=== PATIENT | male | born 1985 | race Caucasian/White ===

== ENCOUNTER 2018-07-03 15:39 | Emergency (ER) | payer OTHER ==
[2018-07-03 16:18] VITALS: BP 140/72; PULSE 96; TEMP 101.6; BMI 25.4
[2018-07-03] MEDS ORDERED: IBUPROFEN 600 MG TABLET (FP) PO ONE ×2 (16:19→16:21)
--- NOTE | 2018-07-03 16:19 | PDOC ---
Rapid Medical Evaluation Time Seen by Provider: 07/03/18 16:13 Medical Evaluation: 07/03/18 16:13 I have performed a brief in-person evaluation of this patient The patient present with a chief complaint of: chest pain, shortness of breath, and upper back pain x 2 days Pertinent physical exam findings: NAD clear lungs bilaterally non tender abdomen I have ordered the following: antipyretic The patient will proceed to the ED for further evaluation. Discharge Disposition - Diagnosis Shortness of breath - Referrals - Patient Instructions - Post Discharge Activity
[2018-07-03 17:57] LABS: BASO % 0.3 % (0-2.0); EOS % 0.8 % (0-4.5); LYMPH % 11.2 % (8-40); MCH 32.4 pg (25.7-33.7); MCHC 34.2 g/dl (32.0-35.9); MEAN CELL VOLUME 94.7 fl (80-96); MEAN PLT VOLUME 9.6 fl (7.5-11.1); NEUT % 79.7 % (42.8-82.8); PLATELET COUNT 192 K/MM3 (134-434); RBC 4.64 M/mm3 (4.00-5.60); RDW 13.1 % (11.9-15.9); WHITE BLOOD COUNT 5.9 K/mm3 (4.0-10.0)
--- NOTE | 2018-07-03 17:57 | PDOC ---
History of Present Illness - General Chief Complaint: Respiratory Stated Complaint: CONGESTED/ CHEST DISCOMFORT Time Seen by Provider: 07/03/18 16:13 History Source: Patient Exam Limitations: Clinical Condition - History of Present Illness Initial Comments: 07/03/18 17:52 Patient with no significant past medical history present with complaint of chest tightness, nasal congestion, body aches, fever, chills, abdominal pain and episode of right nosebleed and blood thinks stool today. Patient reports symptoms started yesterday. Denies numbness or tingling sensation, nausea or vomiting. Denies dizziness. Denies any other symptoms. Timing/Duration: 24 hours Past History - Past Medical History Allergies/Adverse Reactions: Allergies Allergy/AdvReac Type Severity Reaction Status Date / Time No Known Allergies Allergy Verified 07/03/18 16:18 Home Medications: Ambulatory Orders Benzonatate [Tessalon Pearls -] 100 mg PO TID PRN #21 capsule 07/03/18 Methylprednisolone [Medrol Dose Willie] 4 mg PO ASDIR #21 tablet 07/03/18 Oseltamivir Phosphate [Tamiflu -] 75 mg PO BID #10 capsule 07/03/18 Oxymetazoline 0.05% Nasal Soln [Afrin -] 2 spray NS BID PRN 3 Days #1 spraybtl 07/03/18 - Suicide/Smoking/Psychosocial Hx Smoking History: Never smoked Have you smoked in the past 12 months: No Information on smoking cessation initiated: No Hx Alcohol Use: No Drug/Substance Use Hx: No Review of Systems - Review of Systems Able to Perform ROS?: Yes Is the patient limited Danish proficient: No Constitutional: Yes: Chills, Fever, Malaise HEENTM: Yes: Symptoms Reported, See HPI, Nose Congestion. No: Eye Pain, Blurred Vision, Tearing, Recent change in vision, Double Vision, Cataracts, Ear Pain, Ocular Prothesis, Ear Discharge, Nose Pain, Tinnitus, Nose Bleeding, Hearing Loss, Throat Pain, Throat Swelling, Mouth Pain, Dental Problems, Difficulty Swallowing, Mouth Swelling, Other Respiratory: Yes: Symptoms reported, See HPI, Cough. No: Orthopnea, Shortness of Breath, SOB with Exertion, SOB at Rest, Stridor, Wheezing, Productive cough, Hemoptysis, Other Cardiac (ROS): Yes: Symptoms Reported, See HPI, Chest Tightness. No: Chest Pain , Edema, Irregular Heart Rate, Lightheadedness, Palpitations, Syncope, Other ABD/GI: Yes: Abdominal cramping (epigastric). No: Nausea, Vomiting : No: Burning, Dysuria, Discharge, Frequency, Flank Pain, Urgency Musculoskeletal: Yes: See HPI, Muscle Pain (whole body pain) All Other Systems: Reviewed and Negative *Physical Exam - Vital Signs Last Vital Signs Temp Pulse Resp BP Pulse Ox 101.6 F H 96 H 20 140/72 98 07/03/18 16:14 07/03/18 16:14 07/03/18 16:14 07/03/18 16:14 07/03/18 16:14 - Physical Exam Comments: 07/03/18 17:55 GENERAL: Well developed, well nourished. Awake and alert. No acute distress. HEENT: Normocephalic, atraumatic. PERRLA, EOMI. No conjunctival pallor. Sclera are non-icteric. Moist mucous membranes. Oropharynx is clear. NECK: Supple. Full ROM. CARDIOVASCULAR: Regular rate and rhythm. No murmurs, rubs, or gallops. Distal pulses are 2+ and symmetric. PULMONARY: No evidence of respiratory distress. Lungs clear to auscultation bilaterally. No wheezing, rales or rhonchi. ABDOMINAL: Soft. Non-tender. Non-distended. No rebound or guarding. No organomegaly. Normoactive bowel sounds. MUSCULOSKELETAL Normal range of motion at all joints. EXTREMITIES: No cyanosis. No clubbing. No edema. No calf tenderness. SKIN: Warm and dry. Normal capillary refill. No rashes. No jaundice. NEUROLOGICAL: Alert, awake, appropriate. Gait is normal without ataxia. PSYCHIATRIC: Cooperative. Good eye contact. Appropriate mood General Appearance: Yes: Nourished, Appropriately Dressed. No: Apparent Distress ED Treatment Course - LABORATORY CBC & Chemistry Diagram: 07/03/18 17:45 07/03/18 17:53 - RADIOLOGY Radiology Studies Ordered: Category Date Time Status CHEST PA & LAT [RAD] Stat Radiology 07/03/18 17:28 Ordered - Medications Given in the ED: ED Medications Discontinued Medications Generic Name Dose Route Start Last Admin Trade Name Freq PRN Reason Stop Dose Admin Ibuprofen 600 mg 07/03/18 16:19 07/03/18 16:22 Motrin - PO 07/03/18 16:20 600 mg ONCE ONE Administration Medical Decision Making - Medical Decision Making 07/03/18 17:55 Patient with no significant past medical history present with complaint of 24- hour history of nasal congestion, intermittent cough, chest tightness, fever, chills and body aches. Clinical exam significant for fever of 101 degrees Fahrenheit with otherwise normal exam. Normal cardio exam and lungs clear to auscultation bilateral. Mildly hyperactive diffuse bowel sounds without abdominal tenderness on exam. Small amount of dry blood in the right nostril with no active nasal bleeding. No rectal bleeding on exam. Symptoms likely influenza with viral URI and viral gastroenteritis versus bacterial gastroenteritis. Rapid strep and rapid flu tests ordered. CBC, CMP and coag labs ordered. EKG shows normal sinus rhythm. Checks x-ray shows no acute chest infiltrate or pathology. Treat based on lab results 07/03/18 18:29 CBC unremarkable for no elevated wbcs. Chemistry lab with elevated LFTs which likely due to viral gastroenteritis given no epigastric or RUQ tenderness on exam. Rapid flu negative. strep test still pending. coag labs pending 07/03/18 19:11 PT/INR slightly elevated which could be attributed to elevated LFTs for viral syndrome. Given patient with no abdominal tenderness, patient will be treated conservatively for viral syndrome with strict instructions for follow-up and repeat chemistry and coags in 2 days. 07/03/18 19:40 Plan discussed with patient who report he will follow-up with PCP in [address] [place] [address] who is affiliated with this hospital in 2 days *DC/Admit/Observation/Transfer Diagnosis at time of Disposition: Shortness of breath, Viral syndrome, Gastroenteritis, Epistaxis URI (upper respiratory infection) Qualifiers: URI type: unspecified viral URI Qualified Code(s): J06.9 - Acute upper respiratory infection, unspecified - Discharge Dispostion Disposition: HOME Condition at time of disposition: Stable Decision to Admit order: No - Prescriptions Prescriptions: Benzonatate [Tessalon Pearls -] 100 mg PO TID PRN #21 capsule PRN Reason: Cough Methylprednisolone [Medrol Dose Willie] 4 mg PO ASDIR #21 tablet Oseltamivir Phosphate [Tamiflu -] 75 mg PO BID #10 capsule Oxymetazoline 0.05% Nasal Soln [Afrin -] 2 spray NS BID PRN 3 Days #1 spraybtl PRN Reason: nosebleed - Referrals - Patient Instructions Printed Discharge Instructions: Nosebleed, DI for Viral Gastroenteritis -- Adult Additional Instructions: Your chest x-rays was normal. Your CBC labs was normal. labs shows abnormal liver enzymes which could be from the viral infection and needs to be repeat in 2 days to make sure labs are back to normal. Follow-up with PCP or ED here in 2 days for repeat labs. Take medications as prescribed and increase fluid intake. Come back to ER immediately if persistent rectal or nasal bleeding - Post Discharge Activity Forms/Work/School Notes: Back to Work
[2018-07-03 18:26] LABS: ALBUMIN 4.2 g/dl (3.4-5.0); ALK PHOS 141 U/L (45-117); ANION GAP 6 MMOL/L (8-16); BILIRUBIN,TOTAL 0.2 mg/dL (0.2-1); BLOOD UREA NITROGEN 10 mg/dL (7-18); CALCIUM 8.4 mg/dL (8.5-10.1); CHLORIDE 104 mmol/L (98-107); CO2 29 mmol/L (21-32); GLUCOSE,RANDOM 104 mg/dL (74-106); POTASSIUM 3.8 mmol/L (3.5-5.1); SGOT/AST 88 U/L (15-37); SGPT/ALT 116 U/L (13-61); SODIUM 140 mmol/L (136-145); TOT PROT 7.2 g/dl (6.4-8.2)
[2018-07-03 18:50] LABS: INR 1.2 (0.83-1.09); PROTHROMBIN TIME (PATIENT) 14.2 SEC (9.7-13.0)
[2018-07-03 18:54] LABS: ACTIVATED PTT 33.4 SECONDS (25.2-36.5)
--- NOTE | 2018-07-04 14:42 | EKG ---
Test Reason : Blood Pressure : / mmHG Vent. Rate : 084 BPM Atrial Rate : 084 BPM P-R Int : 140 ms QRS Dur : 088 ms QT Int : 336 ms P-R-T Axes : 073 070 061 degrees QTc Int : 397 ms NORMAL SINUS RHYTHM NORMAL ECG NO PREVIOUS ECGS AVAILABLE Confirmed by Bon Worrell ([id number]) on 07/04/2018 2:42:44 PM Referred By: Confirmed By:Bon Worrell
== END 2018-07-03 19:46 | disposition home or self-care (01) ==
LOC: JERFT 15:39
DX: J06.9 Acute upper respiratory infection, unspecified (principal); A08.4 Viral intestinal infection, unspecified; R04.0 Epistaxis; B97.89 Other viral agents as the cause of diseases classified elsewhere
CPT/HCPCS: 36415; 71046-TC-FY; 80053; 82550; 82553; 84484; 85025; 85384; 85610; 85730; 87070; 87804; 87880; 93005; 93010; 99281-25